=== PATIENT | male | born 1995 | race Caucasian/White ===

== ENCOUNTER 2018-11-03 13:46 | Emergency (ER) | payer OTHER ==
[2018-11-03 15:06] VITALS: BP 138/83
--- NOTE | 2018-11-03 16:35 | UC ---
Skin Complaint HPI - HPI Summary HPI Summary: 23 y/o male presents to the urgent care c/o round rash in the ventral side of his Rt upper arm for the past 4 days. He reports Hx of tick bite abut 1 week ago w/o any prophylactic treatment. Family is concerned about Lyme disease and was advised to come to the clinic to r/o. Pt denies fever, but had chill last night. He denies pain, BARRY, joint pains, SOB, dizziness, abdominal pain, N/V/d, insect bite, URI, cough. Hx of STD's - History of Current Complaint Chief Complaint: UCRash Time Seen by Provider: 11/03/18 16:15 Stated Complaint: RASH ON ARM Hx Obtained From: Patient Onset/Duration: Gradual Onset, Lasting Days - 4 days, Still Present, Worse Since - today Skin Exposure Onset/Duration: Days Ago - 1 week ago tick bite Timing: Constant Onset Severity: Mild Current Severity: Mild Pain Intensity: 0 Pain Scale Used: 0-10 Numeric Location: Discrete - Rt upper arm non tender rash Character: Pruritus, Redness Aggravating Factor(s): Touch Alleviating Factor(s): Cold Compresses Associated Signs & Symptoms: Positive: Chills, Rash - RT upper arm rodun rash w / a central clearance. Negative: Fever Related History: Possible Reaction to: Insect - tick bite - Allergy/Home Medications Allergies/Adverse Reactions: Allergies Allergy/AdvReac Type Severity Reaction Status Date / Time No Known Allergies Allergy Verified 11/03/18 15:06 PMH/Surg Hx/FS Hx/Imm Hx Previously Healthy: Yes - Pt denies PMHX - Surgical History Surgical History: None - Family History Known Family History: Positive: Diabetes - Social History Occupation: Employed Full-time Lives: With Family Alcohol Use: None Substance Use Type: None Smoking Status (MU): Never Smoked Tobacco Review of Systems All Other Systems Reviewed And Are Negative: Yes Constitutional: Positive: Negative Skin: Positive: Rash - RT upper arm round rash s/p tick bite Eyes: Positive: Negative ENT: Positive: Negative Respiratory: Positive: Negative Cardiovascular: Positive: Negative Gastrointestinal: Positive: Negative Genitourinary: Positive: Negative Motor: Positive: Negative Neurovascular: Positive: Negative Musculoskeletal: Positive: Negative Neurological: Positive: Negative Psychological: Positive: Negative Is Patient Immunocompromised?: No Physical Exam - Summary Physical Exam Summary: Vital Signs Reviewed: Yes General: well developed, well nourished obese male sitting in the examining table w/o any apparent distress. Eyes: Positive: Conjunctiva Clear - PERRLA, EOMI ENT: Positive: Normal ENT inspection, Hearing grossly normal, Pharynx normal, TMs normal Neck: Positive: Supple, Nontender, No Lymphadenopathy Respiratory: Positive: Chest nontender, Lungs clear, Normal breath sounds Cardiovascular: Positive: RRR, No Murmur, Pulses Normal Abdomen Description: Positive: Nontender, No Organomegaly, Soft. Negative: CVA Tenderness (R), CVA Tenderness (L) Bowel Sounds: Positive: Present Musculoskeletal: Positive: Strength Intact, ROM Intact, No Edema Neurological Exam: Normal Psychological Exam: Normal Skin: Positive: rashes Rt upper arm w/ an erythematous patches w/ a central clearance and classical bull's eye lesions, about 5cmx 6.0cm in size, non tender to palpation. no swelling or drainage observed. Triage Information Reviewed: Yes Vital Signs: Initial Vital Signs Temp 98.1 F 11/03/18 15:01 Pulse 72 11/03/18 15:01 Resp 16 11/03/18 15:01 BP 138/83 11/03/18 15:01 Pulse Ox 99 11/03/18 15:01 Course/Dx - Course Course Of Treatment: 23 y/o male presents to the urgent care c/o round rash in the ventral side of his Rt upper arm for the past 4 days. He reports Hx of tick bite abut 1 week ago w/o any prophylactic treatment. Family is concerned about Lyme disease and was advised to come to the clinic to r/o. Pt denies fever, but had chill last night. He denies pain, BARRY, joint pains, SOB, dizziness, abdominal pain, N/V/d, insect bite, URI, cough. Hx of STD's. Hx obtained. Pt w/ possible medial aspect or the Rt upper arm w/ an erythematous patches w/ a central clearance and classical bull's eye lesions, about 5cmx 6.0cm in size, non tender to palpation. no swelling or drainage observed on examination. Pt w/ possible with Lyme Disease on examination. Lyme serology and CBC ordered. Pt Rx Doxycycline PO . Advised that there is to possibility the serology returns negative the first 2 weeks of exposure. However strongly advised to f/u with Dr Newton or PCP for further management. Pt understood and agreed with plan of care. - Differential Diagnoses - Skin Complaint Differential Diagnoses: Abscess, Cellulitis, Contact Dermatitis, Local Allergic Reaction, MRSA, Tick Born Illness - Diagnoses Provider Diagnosis: Erythema migrans (Lyme disease) Discharge - Sign-Out/Discharge Documenting (check all that apply): Patient Departure - d/C home All imaging exams completed and their final reports reviewed: No Studies - Discharge Plan Condition: Stable Disposition: HOME Prescriptions: DOXYcycline CAP(*) [DOXYcycline 100MG CAP(*)] 100 mg PO BID #28 cap Patient Education Materials: Lyme Disease (ED) Referrals: Tuan Hobson MD [Primary Care Provider] - 1 Week Lamar SKINNER,Jaron Dempsey [Medical Doctor] - 1 Week Additional Instructions: 1- Please take full course of doxycycline antibiotic to avoid resistance. Take yogurts w/ probiotics or Culturelle to protect your GI system. 2- Lyme Serology and blood work was sent to lab. You will be notified of results 3- F/u with DR Newton or a PCP in 1 week for further management in Lyme Disease - Billing Disposition and Condition Condition: STABLE Disposition: Home
[2018-11-04 11:29] LABS: ABS Basophils 0.1 10^3/ul (0-0.2); ABS Eosinophils 0.2 10^3/ul (0-0.6); ABS Lymphocytes 3.7 10^3/ul (1.0-4.8); ABS Monocytes 0.5 10^3/ul (0-0.8); ABS Neutrophils 5.5 10^3/ul (1.5-7.7); Eosinophil % 1.7 %; Hematocrit 46 % (42-52); Hemoglobin 15.7 g/dL (14.0-18.0); Lymphocyte % 36.9 %; Mean Corpuscular HGB Conc 35 g/dL (31-36); Mean Corpuscular Hemoglobin 31 pg (27-31); Mean Corpuscular Volume 89 fL (80-94); Mean Platelet Volume 10.9 fL (7.4-10.4); Nucleated Red Blood Cells % 0.1; Platelet Count 238 10^3/uL (150-450); Red Blood Count 5.12 10^6 /uL (4.18-5.48); Red Cell Distribution Width 13 % (10.5-15); White Blood Count 9.9 10^3/uL (3.5-10.8)
== END 2018-11-03 17:05 | disposition home or self-care (01) ==
LOC: UCEAST 13:46
DX: A69.20 Lyme disease, unspecified (principal)
CPT/HCPCS: 36415; 85025; 86618; 99202; G0463

== ENCOUNTER 2019-01-14 16:36 | Emergency (ER) | payer OTHER ==
[2019-01-14 19:34] VITALS: BP 146/87
[2019-01-14] MEDS ORDERED: Naproxen TAB* 250 MG PO ONE (20:31)
[2019-01-14] MEDS ORDERED: Cyclobenzaprine TAB* 10 MG PO ONE (20:31)
--- NOTE | 2019-01-14 20:44 | UC ---
Back Pain HPI - HPI Summary HPI Summary: 23 year old male with no PMH, no prior back injuries other than fall onto tailbone when younger, treated consevatively. States over past 2-3 days was moving things in the garage, which involved heavy lifting of up to 75 pounds. Since has noted increased back pain, hamstring pain b/l which has made it hard to sleep at night due to waking up with pain. No numbness, tingling, no weakness, no difficulty walking, no loss of bowel/ bladder function. No urinary symptoms. Patient states pain is an 11+/10, however sitting comfortably, joking/ talking, able to move easily. - History of Current Complaint Chief Complaint: UCBackPain Stated Complaint: BACK PAIN Time Seen by Provider: 01/14/19 20:04 Hx Obtained From: Patient Onset/Duration: Sudden Onset, Lasting Days, Still Present Timing: Constant Severity Initially: Severe Severity Currently: Severe Pain Intensity: 10 - Allergies/Home Medications Allergies/Adverse Reactions: Allergies Allergy/AdvReac Type Severity Reaction Status Date / Time No Known Allergies Allergy Verified 01/14/19 19:34 PMH/Surg Hx/FS Hx/Imm Hx Previously Healthy: Yes - Surgical History Surgical History: None - Family History Known Family History: Positive: Diabetes - Social History Alcohol Use: None Substance Use Type: None Smoking Status (MU): Never Smoked Tobacco Review of Systems All Other Systems Reviewed And Are Negative: Yes Musculoskeletal: Positive: Myalgia Neurological: Positive: Negative Is Patient Immunocompromised?: No Physical Exam Triage Information Reviewed: Yes Appearance: Well-Appearing, No Pain Distress, Well-Nourished Vital Signs: Initial Vital Signs Temp 98.4 F 01/14/19 19:28 Pulse 90 01/14/19 19:28 Resp 17 01/14/19 19:28 BP 146/87 01/14/19 19:28 Pulse Ox 99 01/14/19 19:28 Vital Signs Reviewed: Yes Eyes: Positive: Conjunctiva Clear Musculoskeletal Exam: Normal - B/L LE's examined, full ROM, strength = b/l. PT 2+ b/l, non-tender to palpation Musculoskeletal: Positive: Strength Intact, ROM Intact, Other: - full ROM of thoracic, lumbar spine, non-tender to palpation Neurological Exam: Normal Neurological: Positive: Other: - patellar reflexes 2+ b/l SITLT b/l feet Psychological Exam: Normal Skin Exam: Normal Back Pain Course/Dx - Course Course Of Treatment: Lower Back Strain - Naproxen 250mg twice daily x 2-3 days to decrease swelling, inflammation, and decrease pain - Heating pad as needed for comfort - Flexeril at night to help with muscle spasms and pain - Follow up with primary if no improvement within 2-3 days - GO to ER with loss of bowel/ bladder function, weakness, numbness, tingling, decreased movement. - Differential Dx/Diagnosis Differential Diagnosis/HQI/PQRI: Strain, Sprain Provider Diagnosis: Strain of tendon of lower back Discharge ED - Sign-Out/Discharge Documenting (check all that apply): Patient Departure All imaging exams completed and their final reports reviewed: No Studies - Discharge Plan Condition: Good Disposition: HOME Prescriptions: Cyclobenzaprine TAB* [Flexeril 10 MG TAB*] 10 mg PO BEDTIME PRN #3 tab PRN Reason: muscle spasms Naproxen [Naproxen 250 mg tab] 250 mg PO BID #6 tablet Patient Education Materials: Low Back Strain (ED), Core Strengthening Exercises (GEN), Lower Back Exercises (ED) Referrals: Tuan Hobson MD [Primary Care Provider] - Additional Instructions: Lower Back Strain - Naproxen 250mg twice daily x 2-3 days to decrease swelling, inflammation, and decrease pain - Heating pad as needed for comfort - Flexeril at night to help with muscle spasms and pain - Follow up with primary if no improvement within 2-3 days - GO to ER with loss of bowel/ bladder function, weakness, numbness, tingling, decreased movement. - Billing Disposition and Condition Condition: GOOD Disposition: Home - Attestation Statements Provider Attestation: Per institutional requirements, I have reviewed the chart, however, I was not consulted specifically or made aware of this patient by the midlevel provider. I did not personally evaluate, interact with , or disposition this patient.
== END 2019-01-14 20:42 | disposition home or self-care (01) ==
LOC: UCEAST 16:36
DX: S39.012A Strain of muscle, fascia and tendon of lower back, initial encounter (principal); X50.0XXA Overexertion from strenuous movement or load, initial encounter; Y93.89 Activity, other specified; Y92.017 Garden or yard in single-family (private) house as the place of occurrence of the external cause; Y99.8 Other external cause status
CPT/HCPCS: 99212; A9270-GY; G0463